=== PATIENT | female | born 1950 | race Caucasian/White ===

== ENCOUNTER 2017-05-07 15:01 | Inpatient (IN) ==
--- NOTE | 2017-05-10 13:31 | Internal Med History&Physical ---
Date of Encounter: 05/10/17 Time of Encounter: 13:29 Internal Medicine - H&P: HPI Admitted From: Hospital to Hospital Transfer (Patient's here for rehabilitation status post CABG) Plans for Post Hospital Care: Home History of present illness: Ms. Dockery is a 67 year old female Patient is here to see rehabilitation therapist to increase her strength since she has undergone 2 CABgs. Past Med Surg Social Fam HX - Past Medical History Medical history: CHF, coronary artery disease, diabetes, GERD, hyperlipidemia, hypertension, myocardial infarction, renal disease Psychiatric history: no psych history - Past Surgical History Surgical History: angioplasty/stent, coronary bypass (CABG) - Social History Smoking Status: Former smoker Smokeless Tobacco Status: No Alcohol use: none Drug use: none - Family History Mother Living Status: Age at : 83 Hx Family Cardiac Disorders: Yes Hx Family Respiratory Disorders: Yes Hx Family Cancer: No Hx Family GI Disorders: No Hx Family Genitourinary Disorders: No Hx Family Endocrine Disorder: Yes Hx Family Musculoskeletal Disorders: No Hx Family Neuromuscular Disorders: No Hx Family Neurologic Disorders: No Hx Family HEENT Disorders: No Hx Family Autoimmune Disorders: No Hx Family Reproductive Disorders: No Hx Family Psychosocial Disorders: No Hx Family Medical Disorders: No Internal Medicine - H&P: Meds Aspirin Enteric Coated [Aspirin EC] 81 mg PO DAILY 05/03/17 [History] Atorvastatin Calcium 80 mg PO HS 05/03/17 [History] Carvedilol [Coreg] 6.25 mg PO BIDWM 05/03/17 [History] Chlorthalidone 25 mg PO DAILY 05/03/17 [History] Insulin Glargine,Hum.rec.anlog [Lantus Solostar] 26 unit SQ HS 05/03/17 [History ] Lisinopril [Zestril] 40 mg PO BID 05/03/17 [History] Nitroglycerin [Nitrostat] 0.4 mg SL Q5M PRN 05/03/17 [History] metFORMIN [Glucophage] 500 mg PO BID 05/03/17 [History] OxyCODONE/APAP 5/325 [Percocet 5/325 MG] 1 each PO Q4HR PRN #40 tab 05/10/17 [Rx ] Allergies simvastatin Adverse Reaction (Verified 05/03/17 07:33) Nausea Sulfa (Sulfonamide Antibiotics) Adverse Reaction (Verified 05/03/17 07:33) Nausea All Systems PM: A 10-system review of systems was performed and is negative for pertinent findings except as documented above in the HPI. - Constitutional Vitals: Temp Pulse Resp BP Pulse Ox 98.5 F 80 16 135/75 95 05/10/17 11:40 05/10/17 11:40 05/10/17 11:40 05/10/17 11:40 05/10/17 11:40 - Head Head exam: Present: atraumatic, normal inspection, normocephalic - Neck Neck exam general surgery: Present: supple, trachea midline. Absent: lymphadenopathy - Respiratory Respiratory exam: Present: CTAB. Absent: accessory muscle use, rales, rhonchi, wheezes Additional comments: Cardiac occasional bibasilar rhonchi maybe a few rales. I will check a chest x- ray - Cardiovascular Cardiovascular exam: Present: RRR, +S1, +S2. Absent: diastolic murmur, gallop, rubs, systolic murmur
[2017-05-10] MEDS ORDERED: Nitroglycerin 0.4 MG TAB.SUBL SL PRN (13:41)
[2017-05-10] MEDS: *HR* OxyCODONE/APAP 5/325 TABLET PO PRN ×2 (17:52→22:20)
[2017-05-10] MEDS: MOM Conc 10 ML UD.LIQ PO SCH (20:44)
[2017-05-10] MEDS: Lisinopril 20 MG TABLET PO SCH (20:49)
[2017-05-10] MEDS: *HR* Metformin 500 MG TABLET PO SCH (20:49)
[2017-05-10] MEDS: Insulin DETEMIR 100 UNIT/ML X5UNITS SQ SCH (20:50)
[2017-05-11 05:40] LABS: Basophils # 0.1 K/mcL (0.0-0.2); Basophils % 0.4 %; Eosinophils # 0.4 K/mcL (0.0-0.6); Eosinophils % 2.8 %; Hematocrit 25.7 % (35.3-44.9); Hemoglobin 8.5 g/dL (11.5-15.4); Immature Granulocytes % 1.5 % (0-4); Lymphocytes % 14.3 %; Mean Corpuscular HGB Conc 33.1 g/dL (31.6-35.5); Mean Corpuscular Volume 87.7 fL (83.0-100.0); Mean Platelet Volume 10.6 fL (9.4-12.4); Monocytes # 1.1 K/mcL (0.0-1.3); Monocytes % 7.7 %; Neutrophils # 10.1 K/mcL (1.6-8.9); Platelet Count 371 K/mcL (140-400); Red Blood Count 2.93 M/mcL (3.82-4.97); Red Cell Distribution Width 15.7 % (11.5-14.5); Segmented Neutrophils % 73.3 %
[2017-05-11 05:50] LABS: Calcium 8.7 mg/dL (8.6-10.8); Potassium 3.7 mEq/L (3.5-4.5)
[2017-05-11] MEDS: *HR* Enoxaparin 40 MG/0.4 ML SYRINGE SQ SCH (06:19)
[2017-05-11] MEDS: *HR* Metformin 500 MG TABLET PO SCH ×2 (08:36→21:11)
[2017-05-11] MEDS: Lisinopril 20 MG TABLET PO SCH ×2 (08:36→21:11)
[2017-05-11] MEDS: Aspirin Enteric Coated 81 MG Tablet PO SCH (08:36)
[2017-05-11] MEDS: *HR* OxyCODONE/APAP 5/325 TABLET PO PRN ×3 (08:37→21:11)
--- NOTE | 2017-05-11 13:13 | Internal Med Progress Note ---
Date of Encounter: 05/11/17 Time of Encounter: 13:10 - Assessment and plan (1) Coronary artery disease Current Visit: No Status: Resolved Assessment and plan: Assessment for coronary artery disease is stable at this point patient is status post stents then CABG Qualifiers: Coronary Disease-Associated Artery/Lesion type: [place] artery [place] vs. transplanted heart: [place] heart Associated angina: with stable angina Qualified Code(s): I25.118 - Atherosclerotic heart disease of [place] coronary artery with other forms of angina pectoris - Time Spent With Patient less than 15 minutes - Constitutional Vitals: Temp Pulse Resp BP Pulse Ox 98.1 F 62 16 119/49 97 05/11/17 11:00 05/11/17 11:00 05/11/17 11:00 05/11/17 11:00 05/11/17 11:00 - Head Head exam: Present: atraumatic, normal inspection, normocephalic - Neck Neck exam general surgery: Present: supple, trachea midline. Absent: lymphadenopathy - Respiratory Respiratory exam: Present: CTAB. Absent: accessory muscle use, rales, rhonchi, wheezes - Cardiovascular Cardiovascular exam: Present: RRR, +S1, +S2. Absent: diastolic murmur, gallop, rubs, systolic murmur Internal Medicine: Result - Labs CBC & Chem 7: 05/11/17 05:30 05/11/17 05:30 Labs: Short CBC 05/11/17 Range/Units 05:30 WBC 13.8 H (4.3-11.1) K/mcL Hgb 8.5 L (11.5-15.4) g/dL Hct 25.7 L (35.3-44.9) % Plt Count 371 (140-400) K/mcL Neutrophils # 10.1 H (1.6-8.9) K/mcL BMP 05/11/17 05:30 Sodium 140 Potassium 3.7 Chloride 101 Carbon Dioxide 30 H BUN 32 H Creatinine 1.33 H Glucose 181 H Calcium 8.7 I will follow will follow - ABG Interpretation ABG results: PT/INR, D-dimer PT 11.0 Seconds (9.4-12.1) 05/11/17 05:30 - Impressions Impressions Chest X-Ray 05/11/17 06:00 IMPRESSION: New moderate left pleural effusion and small right pleural effusion. Findings are suggestive of pulmonary edema. Pneumonia is not excluded in the appropriate clinical setting. D/ / Babatunde Plascencia MD / Babatunde Plascencia MD Interpreting Provider: Babatunde Plascencia MD Consult Discharge Plan - Plan Referrals: Rl Flores MD [Partnered Physician] - 06/03/17 3:00 pm Lindsey Sosa CNP [Primary Care Provider] - Fawad Chou MD [Partnered Physician] - 06/06/17 2:00 pm
[2017-05-11] MEDS: MOM Conc 10 ML UD.LIQ PO SCH (21:11)
[2017-05-11] MEDS: Insulin DETEMIR 100 UNIT/ML X5UNITS SQ SCH (21:15)
[2017-05-12] MEDS: *HR* Enoxaparin 40 MG/0.4 ML SYRINGE SQ SCH (06:06)
[2017-05-12] MEDS: *HR* Metformin 500 MG TABLET PO SCH ×2 (08:46→20:56)
[2017-05-12] MEDS: Lisinopril 20 MG TABLET PO SCH ×2 (08:46→20:55)
[2017-05-12] MEDS: Aspirin Enteric Coated 81 MG Tablet PO SCH (08:47)
[2017-05-12] MEDS: *HR* OxyCODONE/APAP 5/325 TABLET PO PRN ×2 (15:21→20:56)
[2017-05-12] MEDS: MOM Conc 10 ML UD.LIQ PO SCH (20:55)
[2017-05-12] MEDS: Insulin DETEMIR 100 UNIT/ML X5UNITS SQ SCH (20:56)
[2017-05-12] MEDS: GuaiFENesin/Pseudophedrine TABLET PO SCH (22:03)
[2017-05-13] MEDS: *HR* OxyCODONE/APAP 5/325 TABLET PO PRN ×2 (01:00→22:03)
[2017-05-13] MEDS: *HR* Enoxaparin 40 MG/0.4 ML SYRINGE SQ SCH (05:22)
[2017-05-13 05:41] LABS: Basophils # 0.1 K/mcL (0.0-0.2); Basophils % 0.4 %; Eosinophils # 0.5 K/mcL (0.0-0.6); Eosinophils % 3.8 %; Hematocrit 26.8 % (35.3-44.9); Hemoglobin 8.6 g/dL (11.5-15.4); Immature Granulocytes % 0.7 % (0-4); Lymphocytes # 2.8 K/mcL (0.6-4.6); Lymphocytes % 20.3 %; Mean Corpuscular HGB Conc 32.1 g/dL (31.6-35.5); Mean Corpuscular Hemoglobin 28.2 pg (28.0-33.3); Mean Corpuscular Volume 87.9 fL (83.0-100.0); Mean Platelet Volume 10.4 fL (9.4-12.4); Monocytes # 1.1 K/mcL (0.0-1.3); Monocytes % 7.9 %; Platelet Count 426 K/mcL (140-400); Red Blood Count 3.05 M/mcL (3.82-4.97); Red Cell Distribution Width 15.5 % (11.5-14.5); Segmented Neutrophils % 66.9 %
[2017-05-13 05:46] LABS: Neutrophils # 9.2 K/mcL (1.6-8.9)
[2017-05-13 05:55] LABS: Potassium 4.3 mEq/L (3.5-4.5)
[2017-05-13] MEDS: *HR* Metformin 500 MG TABLET PO SCH ×2 (08:31→22:01)
[2017-05-13] MEDS: GuaiFENesin/Pseudophedrine TABLET PO SCH ×2 (08:31→22:02)
[2017-05-13] MEDS: Aspirin Enteric Coated 81 MG Tablet PO SCH (08:32)
[2017-05-13] MEDS: Lisinopril 20 MG TABLET PO SCH ×2 (08:32→22:03)
--- NOTE | 2017-05-13 14:55 | Internal Med Progress Note ---
Date of Encounter: 05/13/17 Time of Encounter: 14:53 - Assessment and plan (1) S/P CABG (coronary artery bypass graft) Current Visit: Yes Status: Acute Assessment and plan: Patient's here for rehabilitation after having a CABG. (2) Coronary artery disease Current Visit: No Status: Resolved Assessment and plan: Circumflex artery artery disease with previous stents Qualifiers: Coronary Disease-Associated Artery/Lesion type: [place] artery [place] vs. transplanted heart: [place] heart Associated angina: with stable angina Qualified Code(s): I25.118 - Atherosclerotic heart disease of [place] coronary artery with other forms of angina pectoris - Time Spent With Patient less than 15 minutes - Subjective Interval history: Patient had some chest pain this morning but I do not believe is cardiac. EKG was unchanged although she has blocked. It resolved with some O2 at rest she is anxious to continue her therapy - Constitutional Vitals: Temp Pulse Resp BP Pulse Ox 97.4 F L 73 16 122/59 97 05/13/17 10:48 05/13/17 10:48 05/13/17 10:48 05/13/17 10:48 05/13/17 10:48 - Head Head exam: Present: atraumatic, normal inspection, normocephalic - Neck Neck exam general surgery: Present: supple, trachea midline. Absent: lymphadenopathy - Respiratory Respiratory exam: Present: CTAB. Absent: accessory muscle use, rales, rhonchi, wheezes - Cardiovascular Cardiovascular exam: Present: RRR, +S1, +S2. Absent: diastolic murmur, gallop, rubs, systolic murmur Internal Medicine: Result - Labs CBC & Chem 7: 05/13/17 05:15 05/13/17 05:15 Labs: Short CBC 05/13/17 Range/Units 05:15 WBC 13.7 H (4.3-11.1) K/mcL Hgb 8.6 L (11.5-15.4) g/dL Hct 26.8 L (35.3-44.9) % Plt Count 426 H (140-400) K/mcL Neutrophils # 9.2 H (1.6-8.9) K/mcL BMP 05/13/17 05:15 Sodium 141 Potassium 4.3 Chloride 102 Carbon Dioxide 30 H BUN 35 H Creatinine 1.17 H Glucose 138 H Calcium 9.0 After follow lab there are some abnormalities but I do not think there critical. - ABG Interpretation ABG results: PT/INR, D-dimer PT 11.0 Seconds (9.4-12.1) 05/11/17 05:30 Consult Discharge Plan - Plan Referrals: Rl Flores MD [Partnered Physician] - 06/03/17 3:00 pm Lindsey Sosa, COLLE[employer]N [Primary Care Provider] - Fawad Chou MD [Partnered Physician] - 06/06/17 2:00 pm
[2017-05-13] MEDS: Insulin DETEMIR 100 UNIT/ML X5UNITS SQ SCH (22:02)
[2017-05-13] MEDS: MOM Conc 10 ML UD.LIQ PO SCH (22:02)
[2017-05-14] MEDS: *HR* Enoxaparin 40 MG/0.4 ML SYRINGE SQ SCH (05:34)
[2017-05-14] MEDS: *HR* OxyCODONE/APAP 5/325 TABLET PO PRN (05:35)
[2017-05-14 05:57] LABS: BUN/Creatinine Ratio 24 (6-26); Blood Urea Nitrogen 26 mg/dL (7-20); Carbon Dioxide 31 mEq/L (19-29); Chloride 101 mEq/L (98-109); Glucose 88 mg/dL (70-99); Osmolality,Calculated 290 (280-300); Potassium 4.4 mEq/L (3.5-4.5); Sodium 138 mEq/L (136-145); eGFR For African Americans > 60 (> 60); eGFR For Non-African Americans 51 (> 60)
--- NOTE | 2017-05-14 06:31 | Electrocardiograph Report ---
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
[2017-05-14 07:46] VITALS: BP 152/74
[2017-05-14] MEDS ORDERED: traMADol 50 MG TABLET PO PRN (08:23)
[2017-05-14] MEDS ORDERED: Ondansetron ODT 4 MG TAB.RAPDIS SL PRN (08:24)
[2017-05-14] MEDS: *HR* Metformin 500 MG TABLET PO SCH (08:52)
[2017-05-14] MEDS: Lisinopril 20 MG TABLET PO SCH (08:53)
[2017-05-14] MEDS: GuaiFENesin/Pseudophedrine TABLET PO SCH (08:53)
[2017-05-14] MEDS: Aspirin Enteric Coated 81 MG Tablet PO SCH (08:53)
--- NOTE | 2017-05-14 11:50 | Discharge Summary ---
Date of Encounter: 05/14/17 Time of Encounter: 11:48 - Discharge Diagnosis (1) S/P CABG (coronary artery bypass graft) Priority: Primary Status: Acute Comments: Well for some reason today the patient says someone to a [facility]. So were transferring her. And there is a slight increase in her pleural effusion. His sats are above 90. But I did put in a call to the cardiothoracic surgeon just to have a metabolic - Discharge Medications Home Medications: Aspirin Enteric Coated [Aspirin EC] 81 mg PO DAILY 05/03/17 [History] Atorvastatin Calcium 80 mg PO HS 05/03/17 [History] Carvedilol [Coreg] 6.25 mg PO BIDWM 05/03/17 [History] Chlorthalidone 25 mg PO DAILY 05/03/17 [History] Insulin Glargine,Hum.rec.anlog [Lantus Solostar] 26 unit SQ HS 05/03/17 [History ] Lisinopril [Zestril] 40 mg PO BID 05/03/17 [History] Nitroglycerin [Nitrostat] 0.4 mg SL Q5M PRN 05/03/17 [History] metFORMIN [Glucophage] 500 mg PO BID 05/03/17 [History] OxyCODONE/APAP 5/325 [Percocet 5/325 MG] 1 each PO Q4HR PRN #40 tab 05/10/17 [Rx ] Allergies/Adverse Reactions: Allergies simvastatin Adverse Reaction (Verified 05/03/17 07:33) Nausea Sulfa (Sulfonamide Antibiotics) Adverse Reaction (Verified 05/03/17 07:33) Nausea Procedures/tests Complete & Pending: Procedures Performed prior 72 hours Category Date Time Status ECG 12 lead ECG [ECG] Routine Y 05/13/17 09:50 Completed Date of admission: 05/10/17 11:48 Primary care physician: Lindsey Sosa CNP Consults: 05/10/17 12:14 Consult to Occupational Therapy [CONS] Routine Comment: Evaluate, develop and implement POC Reason for Consult: eval and treat Consult to Physical Therapy [CONS] Routine Comment: Evaluate, develop and implement POC Reason for Consult: eval and tx eval and tx Consult to Recreational Therapy [CONS] Routine Comment: Evaluate, develop and implement POC Consult to Accounting/Finance Tutor [CONS] Routine Reason for SW Consult: eval and tx Discharging clinician: Charli Rowe Jr Anticipated date of discharge: 05/14/17 - Patient Status Disposition: Transfer SNF Condition: Good Functional capacity at discharge: uses cane/walker Overall status at discharge: patient is progressing back to baseline - Discharge Instructions Follow Up With: Rl Flores MD [Partnered Physician] - 06/03/17 3:00 pm Lindsey Sosa, [employer] [Primary Care Provider] - Fawad Chou MD [Partnered Physician] - 06/06/17 2:00 pm - Diet and Activity Activity: ambulate only with your walker, as per physical therapy Hospital course: Ms. Dockery is a 67 year old female - Time Spent with Patient Total time spent providing and/or coordinating discharge services: - Constitutional Vitals: Temp Pulse Resp BP Pulse Ox 98.1 F 86 16 152/74 95 05/14/17 07:45 05/14/17 07:45 05/14/17 07:45 05/14/17 07:45 05/14/17 07:45 - Head Head exam: Present: atraumatic, normal inspection, normocephalic - Neck Neck exam general surgery: Present: supple, trachea midline. Absent: lymphadenopathy - Respiratory Respiratory exam: Present: chest wall tenderness, CTAB. Absent: accessory muscle use, rales, rhonchi, wheezes Additional comments: Patient had a CABG. Chest x-ray shows bilateral pleural effusions. She has little bibasilar rales - Cardiovascular Cardiovascular exam: Present: RRR, +S1, +S2. Absent: diastolic murmur, gallop, rubs, systolic murmur - GI/Abdominal GI/Abdominal exam: Present: normal bowel sounds, soft, no peritoneal signs. Absent: distended, tenderness
--- NOTE | 2017-05-14 11:52 | Physician Discharge Referral ---
ExtendedCare Referral Info Transfer To: F Provider in Charge after Transfer: PCP Institutional Level of Care: Skilled - Diagnosis (1) S/P CABG (coronary artery bypass graft) Priority: Primary Status: Acute Prognosis: Good Aware of Diagnosis: Patient Aware of Prognosis: Patient - Transfer Medications Home Medications: Aspirin Enteric Coated [Aspirin EC] 81 mg PO DAILY 05/03/17 [History] Atorvastatin Calcium 80 mg PO HS 05/03/17 [History] Carvedilol [Coreg] 6.25 mg PO BIDWM 05/03/17 [History] Chlorthalidone 25 mg PO DAILY 05/03/17 [History] Insulin Glargine,Hum.rec.anlog [Lantus Solostar] 26 unit SQ HS 05/03/17 [History ] Lisinopril [Zestril] 40 mg PO BID 05/03/17 [History] Nitroglycerin [Nitrostat] 0.4 mg SL Q5M PRN 05/03/17 [History] metFORMIN [Glucophage] 500 mg PO BID 05/03/17 [History] OxyCODONE/APAP 5/325 [Percocet 5/325 MG] 1 each PO Q4HR PRN #40 tab 05/10/17 [Rx ] Allergies/Adverse Reactions: Allergies simvastatin Adverse Reaction (Verified 05/03/17 07:33) Nausea Sulfa (Sulfonamide Antibiotics) Adverse Reaction (Verified 05/03/17 07:33) Nausea - Respiratory Orders Smoking Cessation: Smoking cessation has been advised. For more information, call the [place] Tobacco Quit Line at 8-366-MBQP-NOW. Patient is on O2 per nasal cannula 2 L with sats greater than 90 - Mobility Orders Ambulate - Rehabiliation Orders Rehab Orders: Sternal Precautions, Evaluation for Physical Therapy, Evaluation for Occupational Therapy - Treatments May check for fecal impaction rectally daily PRN - Diet Orders No Concentrated Sweets CERTIFICATION: I certify that the transfer of the above named patient to an Extended Care Facility is necessary for the continuing treatment of the diagnosis listed. The above information is true and accurate reflection of patient's current condition. Confidential - Redisclosure prohibited without a patient's written consent.
== END 2017-05-14 13:30 | DRG 949 ==
LOC: INPGRE 05-10 11:48
PROVIDERS: ADMIT Internal Medicine; ATTEND Internal Medicine